=== PATIENT | male | born 1935 | race Caucasian/White ===

== ENCOUNTER 2019-06-09 13:18 | Emergency (ER) | payer MEDICARE ==
[~2019-06-09] VITALS: Ht 180.3 cm; Wt 62.4 kg
[~2019-06-09 13:18] MED LIST: ATORVASTATIN; ESCI10TA PO; LOSARTAN; METOPROLOL; POTA20TA6 PO
--- NOTE | 2019-06-09 13:44 | NUR ---
THIS IS AN 83 YO MALE COMING IN FOR NO GAS OR STOOL IN HIS COLOSTOMY BAG FOR 6 HOURS, WHICH IS IRREGULAR COMPARED TO HIS NORMAL FUNCTION. PATIENT HAS HX COLON CA, HAS HAD COLOTOMY X1 MONTH WITH NO PROBLEMS. PATIENT HAS BOWEL SOUNDS ACTIVE X4 QUADRANTS. PATIENT STATED HE EMPTIED HIS COLOSTOMY BAG THIS MORNING AND IT WAS "HARD AND DOG POOP LIKE". PATIENT PLACED ON CONTINUOUS SPO2 AT 96%, CYCLE BP Q1HR. PATIENT GIVEN WARM BLANKET, DENIES FURTHER NEEDS AT THIS TIME.
[2019-06-09] MEDS ORDERED: ONDANSETRON 2MG/ML, 2ML ONE (14:13)
[2019-06-09] MEDS ORDERED: MORPHINE SULFATE 4 MG/ML, 1ML ONE ×2 (14:13→17:51)
[2019-06-09] MEDS: MORPHINE SULFATE 4 MG/ML, 1ML IVPush PRN ×2 (14:27→17:53)
[2019-06-09] MEDS ORDERED: ONDANSETRON 2MG/ML, 2ML IVPush ONE (14:30)
--- NOTE | 2019-06-09 14:37 | NUR ---
PATIENT MEDICATED PER EMAR, RESTING ON GURNEY, FAMILY AT BEDSIDE, DENIES FURTHER NEEDS AT THIS TIME.
[2019-06-09 14:55] LABS: BASOPHILS # (AUTO) 0.09 x10^3/uL (0-0.1); BASOPHILS % (AUTO) 1 % (0-1); EOSINOPHILS # (AUTO) 0.85 x10^3/uL (0-0.4); EOSINOPHILS % (AUTO) 8 % (1-7); LYMPHOCYTES # (AUTO) 1.62 x10^3/uL (1-3.4); LYMPHOCYTES % (AUTO) 15 % (22-44); MD NO; MEAN CORPUSCULAR HEMOGLOBIN 29.5 pg (27.5-34.5); MEAN CORPUSCULAR HGB CONC 32.5 g/dL (33.2-36.2); MEAN CORPUSCULAR VOLUME 90.9 fL (81-97); MEAN PLATELET VOLUME 7.6 fL (7.4-10.4); MONOCYTES # (AUTO) 0.85 x10^3/uL (0.2-0.8); MONOCYTES % (AUTO) 8 % (2-9); NEUTROPHILS # (AUTO) 7.22 x10^3/uL (1.8-6.8); NEUTROPHILS % (AUTO) 68 % (42-75); PLATELET COUNT 534 x10^3/uL (130-400)
[2019-06-09 15:13] LABS: ALANINE AMINOTRANSFERASE 12 U/L (12-78); ALBUMIN 3.3 g/dL (3.4-5.0); ANION GAP 8 mmol/L (5-15); CALCIUM 9.3 mg/dL (8.5-10.1); CHLORIDE 105 mmol/L (98-107); CREATININE 0.85 mg/dL (0.7-1.3)
[2019-06-09 15:15] LABS: ALKALINE PHOSPHATASE 114 U/L (45-117); BILIRUBIN,TOTAL 0.3 mg/dL (0.2-1.0)
[2019-06-09 15:31] LABS: RED CELL DISTRIBUTION WIDTH 15.2 % (9.4-14.8)
--- NOTE | 2019-06-09 15:38 | NUR ---
PATIENT RESTING COMFORTABLY, VSS, PAIN DECREASED FROM AN 8 TO A 2/10. WAITING FOR CT, CALL LIGHT IN REACH, DENIES FURTHER NEEDS AT THIS TIME.
--- NOTE | 2019-06-09 16:25 | NUR ---
PATIENT TO CT.
[2019-06-09] MEDS ORDERED: OMNIPAQUE 350 MG/ML, 100ML BOTTLE ONE (16:41)
--- NOTE | 2019-06-09 16:43 | NUR ---
PATIENT BACK FROM CT
--- NOTE | 2019-06-09 16:49 | NUR ---
PATIENT RESTING ON GURNEY, VSS, FAMILY AT BEDSIDE. CALL LIGHT IN REACH, DENIES FURTHER NEEDS AT THIS TIME. AWAITING CT RESULTS.
--- NOTE | 2019-06-09 17:57 | NUR ---
PATIENT MEDICATED PER EMAR, RESTING COMFORTABLY, DENIES FURTHER NEEDS AT THIS TIME.
--- NOTE | 2019-06-09 18:07 | NUR ---
[facility]: GEN SURG PAGED
--- NOTE | 2019-06-09 18:49 | NUR ---
REPORT GIVEN TO KEMAR OCHOA. PLAN OF CARE DISCUSSED.
--- NOTE | 2019-06-09 20:09 | NUR ---
FLEET ENEMA ADMINISTERED, LITTLE TO NO FECAL MATTER RETURN AFTER IN CHOLOSTOMY BAG
[2019-06-09 20:51] VITALS: BP 126/77
== END 2019-06-09 20:54 | disposition home or self-care (01) ==
LOC: ED 17:28
DX: K59.00 Constipation, unspecified (principal); R10.9 Unspecified abdominal pain; I10 Essential (primary) hypertension; I25.10 Atherosclerotic heart disease of native coronary artery without angina pectoris; Z87.891 Personal history of nicotine dependence
CPT/HCPCS: 36415; 74021; 74177; 80053; 85025; 96374; 96375; 96376; 99284; J2270; J2405; Q9967

== ENCOUNTER → 2019-09-08 | Outpatient (CLI) | payer MEDICARE ==
[~2019-09-08] MED LIST changes: +OMNIPAQUE 350 MG/ML, 100ML BOTTLE ONE
== END | disposition home or self-care (01) ==
LOC: CFH 10:57
PROVIDERS: ATTEND Specialist
DX: K44.9 Diaphragmatic hernia without obstruction or gangrene (principal); K75.0 Abscess of liver; K76.9 Liver disease, unspecified; R91.1 Solitary pulmonary nodule; J84.10 Pulmonary fibrosis, unspecified
CPT/HCPCS: 71260; 74160; Q9967

== ENCOUNTER 2019-10-21 10:39 | Outpatient (CLI) | payer MEDICARE ==
[~2019-10-21 10:39] MED LIST changes: -OMNIPAQUE 350 MG/ML, 100ML BOTTLE ONE
[2019-10-21] MEDS ORDERED: OMNIPAQUE 350 MG/ML, 100ML BOTTLE ONE (15:17)
== END 2019-10-21 23:59 | disposition home or self-care (01) ==
LOC: CFH 10:39
PROVIDERS: ATTEND Specialist
DX: C18.6 Malignant neoplasm of descending colon (principal); I26.99 Other pulmonary embolism without acute cor pulmonale; M47.815 Spondylosis without myelopathy or radiculopathy, thoracolumbar region; M85.88 Other specified disorders of bone density and structure, other site; M40.294 Other kyphosis, thoracic region; I70.0 Atherosclerosis of aorta
CPT/HCPCS: 71260; 74160; Q9967

== ENCOUNTER 2019-10-21 14:57 | Emergency (ER) | payer MEDICARE ==
[~2019-10-21] VITALS: Ht 180.3 cm; Wt 67.2 kg
--- NOTE | 2019-10-21 15:30 | NUR ---
FIRST CONTACT WITH PT. PT SENT HERE AFTER A CT SCAN REVEALED PE'S. PT IS CURRENTLY BEING TREATED FOR COLON CA W/METS. PT DOESN'T HAVE ANY SYMPTOMS AT THIS TIME. PT'S AOX4. RESPS EVEN AND UNLABORED. BP/SPO2 MONITORS IN PLACE. CALL LIGHT WITHIN REACH.
[2019-10-21] MEDS ORDERED: SODIUM CHLORIDE FLUSH 10ML SYR IVF ONE (16:00)
[2019-10-21 16:22] LABS: ALANINE AMINOTRANSFERASE 16 U/L (12-78); ALBUMIN 3.5 g/dL (3.4-5.0); ANION GAP 5 mmol/L (5-15); CALCIUM 8.8 mg/dL (8.5-10.1); CHLORIDE 106 mmol/L (98-107); CREATININE 0.85 mg/dL (0.7-1.3)
[2019-10-21 16:24] LABS: ALKALINE PHOSPHATASE 85 U/L (45-117); BILIRUBIN,TOTAL 0.5 mg/dL (0.2-1.0); TOTAL PROTEIN 7.5 g/dL (6.4-8.2)
--- NOTE | 2019-10-21 16:25 | NUR ---
HEPARIN HOLD AT THIS TIME PER EDMD VERBAL ORDER.
[2019-10-21 16:29] LABS: INTERNATIONAL NORMALIZED RATIO 1.07 (0.93-1.1); PROTHROMBIN TIME 11.4 Seconds (9.6-11.5)
[2019-10-21] MEDS ORDERED: HEPARIN 25,000 UNITS/250ML PMX 250 ML IV PRN (16:30)
[2019-10-21] MEDS ORDERED: HEPARIN 5,000 UNITS/ML, 1ML IV PRN (16:30)
[2019-10-21] MEDS ORDERED: HEPARIN 5,000 UNITS/ML, 1ML IV ONE (16:30)
[2019-10-21 16:47] LABS: MD YES; MEAN CORPUSCULAR HEMOGLOBIN 30.6 pg (27.5-34.5); MEAN CORPUSCULAR HGB CONC 32.6 g/dL (33.2-36.2); MEAN CORPUSCULAR VOLUME 93.8 fL (81-97); MEAN PLATELET VOLUME 7.5 fL (7.4-10.4); PLATELET COUNT 255 x10^3/uL (130-400); RED BLOOD COUNT 3.86 x10^6/uL (4.38-5.82); RED CELL DISTRIBUTION WIDTH 21.5 % (9.4-14.8)
--- NOTE | 2019-10-21 16:51 | NUR ---
PT AMB TO BR AND BACK TO ROOM WITH STEADY GAIT.
[2019-10-21 17:05] LABS: BASOS#(MANUAL) 0.06 x10^3/uL (0-0.1); BASOS% (MANUAL) 1 % (0-1); EOS#(MANUAL) 0.28 x10^3/uL (0.0-0.4); EOS% (MANUAL) 5 % (1-7); LYMPH#(MANUAL) 1.34 x10^3/uL (1-3.4); LYMPHS% (MANUAL) 24 % (22-44); MONOS#(MANUAL) 0.62 x10^3/uL (0.3-2.7); MONOS% (MANUAL) 11 % (2-9); SEGS% (MANUAL) 59 % (42-75)
[2019-10-21 17:06] LABS: <PLATELET ESTIMATE> ADEQUATE; <PLT MORPHOLOGY> NORMAL PLT MORPH; ANISOCYTOSIS 1+
[2019-10-21 17:07] LABS: OVALOCYTES 1+
--- NOTE | 2019-10-21 17:24 | NUR ---
PT RESTING IN [facility]. PT'S AOX4. RESPS EVEN AND UNLABORED.
[2019-10-21 17:54] VITALS: BP 134/79
--- NOTE | 2019-10-21 18:17 | NUR ---
PT AMB TO BR WITH STEADY GAIT.
--- NOTE | 2019-10-21 18:26 | NUR ---
Patient given discharge instructions and they have confirmed that they understand the instructions. Patient ambulatory with steady gait.
== END 2019-10-21 18:27 | disposition home or self-care (01) ==
LOC: ED 16:08
DX: I26.99 Other pulmonary embolism without acute cor pulmonale (principal); I10 Essential (primary) hypertension; I25.2 Old myocardial infarction; I25.10 Atherosclerotic heart disease of native coronary artery without angina pectoris; Z85.038 Personal history of other malignant neoplasm of large intestine
CPT/HCPCS: 36415; 80053; 85025; 85520; 85610; 85730; 93005; 99285

== ENCOUNTER 2020-01-19 12:50 | Outpatient (CLI) | payer MEDICARE ==
[2020-01-19] MEDS ORDERED: OMNIPAQUE 350 MG/ML, 100ML BOTTLE ONE (15:49)
== END 2020-01-19 23:59 | disposition home or self-care (01) ==
LOC: CFH 12:50
PROVIDERS: ATTEND Specialist
DX: C18.6 Malignant neoplasm of descending colon (principal); C78.7 Secondary malignant neoplasm of liver and intrahepatic bile duct; K44.9 Diaphragmatic hernia without obstruction or gangrene; J47.9 Bronchiectasis, uncomplicated; M40.294 Other kyphosis, thoracic region; M47.814 Spondylosis without myelopathy or radiculopathy, thoracic region; K31.89 Other diseases of stomach and duodenum; K82.0 Obstruction of gallbladder
CPT/HCPCS: 71260; 74160; 82565; Q9967